=== PATIENT | female | born 1995 | race Caucasian/White ===

== ENCOUNTER → 2019-07-16 | Outpatient (CLI) | payer BC ==
--- NOTE | 2019-07-16 13:38 | Diagnostic Imaging Report ---
INDICATION: survey. TECHNIQUE: Multiple real-time grayscale images were obtained over the gravid uterus. COMPARISON: There are no prior studies available for comparison. FINDINGS: There is a single live fetus in breech presentation. heart motion was noted, and a rate of 150 BPM was recorded. This study was technically difficult due to the patient's body habitus. There were no abnormalities identified. However, the four-chamber heart view and the three-vessel cord were not well visualized. The intracranial contents were poorly imaged as well. The growth parameters are fairly uniform. The placenta is anterior, and there is no previa. The amniotic fluid volume is within normal limits. The cervix was identified and measures 4.3 cm in length. IMPRESSION: 1. There is a single live fetus of approximately 20 weeks 6 days gestation, +/- 1.5 weeks. The EDC is November 27, 2019. 2. There were no abnormalities identified. However, the four-chamber heart view, the three-vessel cord, and the intracranial contents were not well visualized. A short-term (4-6 week) follow-up exam would be recommended for further evaluation. 3. The growth parameters are fairly uniform. Biometrical measurements are as follows: Biparietal 4.91 cm, age 20 weeks 6 days. Head circumference 18.46 cm, age 20 weeks 6 days. Abdominal circumference 15.23 cm, age 20 weeks 4 days. Femur length 3.45 cm, age 21 weeks 0 days. Sonographic estimate age: 20 weeks 6 days. Sonographic estimated date of delivery: 11/27/2019. Estimated Weight: 369 gm (+/- 54 gm). LMP percentile: 50%. heart rate: 150 beats per minute. number: 1 of 1. Dictated by: Dictated on workstation # [id number]
== END ==
LOC: RAD 10:37
PROVIDERS: ATTEND Nurse Practitioner Women's Health
DX: Z36.89 Encounter for other specified antenatal screening (principal); Z3A.20 20 weeks gestation of pregnancy
CPT/HCPCS: 76805

== ENCOUNTER → 2019-09-17 | Outpatient (CLI) | payer BC ==
--- NOTE | 2019-09-17 11:46 | Diagnostic Imaging Report ---
TECHNIQUE: Multiple real-time grayscale images were obtained over the gravid uterus. INDICATION: For completion of prior limited anatomical survey. This is compared with a study performed 07/16/2019 that exam showing pizarro gestation. EDC 11/27/2019. Limited evaluation of the 4 chambered heart, the cord and the intracranial contents. Cardiac structures of the pizarro gestation appeared unremarkable. A three-vessel cord appeared normal and normally inserted. The visualized intracranial structures unremarkable. The posterior fossa and cisterna magna could not be clearly delineated on a positional basis. The placenta is anterior with no abruption or previa. Amniotic fluid index 14.7 was normal. heart rate regular at 139 bpm. IMPRESSION: Limited visualization of the posterior fossa on a positional basis remaining intracranial structures and previously inadequately visualized anatomical structures appeared normal. No pathological finding identified. Biometrical measurements are as follows: Biparietal cm, age weeks days. Head circumference cm, age weeks days. Abdominal circumference cm, age weeks days. Femur length cm, age weeks days. Sonographic estimate age: weeks days. Sonographic estimated date of delivery: . Estimated Weight: gm (+/- gm). LMP percentile: %. heart rate: beats per minute. number: of . Dictated by: Dictated on workstation # [id number]
== END ==
LOC: RAD 10:00
PROVIDERS: ATTEND Obstetrics & Gynecology
DX: Z36.9 Encounter for antenatal screening, unspecified (principal); Z3A.28 28 weeks gestation of pregnancy
CPT/HCPCS: 76816

== ENCOUNTER → 2019-09-30 | Outpatient (CLI) | payer BC ==
--- NOTE | 2019-09-30 14:47 | Diagnostic Imaging Report ---
INDICATION: Gestational diabetes. TECHNIQUE: Multiple real-time grayscale images were obtained over the gravid uterus. COMPARISON: 09/17/2019. FINDINGS: There is a single live fetus in a cephalic presentation. heart rate was recorded at 144 BPM. Placenta is anterior. Amniotic fluid volume is 16.6 cm. Biophysical profile was performed. Biophysical profile score is normal at 8 out of 8. Biometrical measurements are as follows: Biparietal 8.15 cm, age 32 weeks 6 days. Head circumference 29.55 cm, age 32 weeks 5 days. Abdominal circumference 28.12 cm, age 32 weeks 2 days. Femur length 6.09 cm, age 31 weeks 5 days. Sonographic estimate age: 32 weeks 3 days. Sonographic estimated date of delivery: 11/22/2019. Estimated Weight: 1903 gm (+/- 278 gm). LMP percentile: 61%. heart rate: 147 beats per minute. number: 1 of 1. IMPRESSION: Single live IUP 32 to 33 weeks gestational age. Biophysical profile score is normal at 8 out of 8. Dictated by: Dictated on workstation # [id number]
== END ==
LOC: RAD 10:23
PROVIDERS: ATTEND Obstetrics & Gynecology
DX: O24.419 Gestational diabetes mellitus in pregnancy, unspecified control (principal); Z3A.33 33 weeks gestation of pregnancy
CPT/HCPCS: 76805; 76819

== ENCOUNTER → 2019-10-28 | Outpatient (CLI) | payer BC ==
--- NOTE | 2019-10-28 14:45 | Diagnostic Imaging Report ---
INDICATION: Gestational diabetes. TECHNIQUE: Multiple real-time grayscale images were obtained over the gravid uterus. COMPARISON: 09/30/2019. FINDINGS: There is a single live intrauterine gestation in cephalic presentation. The visible cervix measures 3 cm in length, however is not well seen due to shadowing from the head. The placenta is anterior and there is no evidence of previa. The heart rate measures 150 BPM. Biometric measurements are given below. The nose and lips are seen. The amniotic fluid index measures 11.7 cm. The biophysical profile score is 8/8, which is normal. The maternal adnexa are not seen due to gravid uterus. Biometrical measurements are as follows: Biparietal 8.90 cm, age 36 weeks 1 days. Head circumference 31.21 cm, age 35 weeks 0 days. Abdominal circumference 31.81 cm, age 35 weeks 6 days. Femur length 6.69 cm, age 34 weeks 3 days. Sonographic estimate age: 35 weeks 3 days. Sonographic estimated date of delivery: 11/29/2019. Estimated Weight: 2651 gm (+/- 387 gm). LMP percentile: 46%. heart rate: 150 beats per minute. number: 1 of 1. IMPRESSION: 1. Single live intrauterine gestation measuring at 35 weeks and 3 days which is concordant with the clinical dates. heart rate and amniotic fluid are normal. 2. Biophysical profile score is 8/8, which is normal. Dictated by: Dictated on workstation # [id number]
== END ==
LOC: RAD 10:49
PROVIDERS: ATTEND Obstetrics & Gynecology
DX: O24.415 Gestational diabetes mellitus in pregnancy, controlled by oral hypoglycemic drugs (principal); Z3A.35 35 weeks gestation of pregnancy
CPT/HCPCS: 76805; 76819

== ENCOUNTER 2019-11-18 08:51 | Inpatient (IN) | payer BC ==
[2019-11-18] VITALS (14 sets, daily range): BP systolic 102–148; BP diastolic 59–91
[~2019-11-18] VITALS: Ht 160 cm; Wt 113.2 kg
--- NOTE | 2019-11-18 09:00 | NUR ---
CRIS MULLEN presented to unit via ambulation from ED, accompanied by s/o, with c/o WATER BROKE. CRIS MULLEN weighed, gowned, voided, and to bed. EFHM and TOCO applied, VS taken. CRIS MULLEN oriented to bed controls, call light, TV, heat, and A/C controls.
[2019-11-18] MEDS ORDERED: OMEP20CA18 PO (09:48)
[2019-11-18] MEDS ORDERED: PREN-142 PO (09:48)
[2019-11-18] MEDS ORDERED: FERR-84 PO (09:50)
[2019-11-18] MEDS ORDERED: ASCO500T17 PO (09:50)
[2019-11-18] MEDS ORDERED: METF-399 PO (09:50)
[2019-11-18 09:52] LABS: BILIRUBIN,URINE NEGATIVE (NEGATIVE); CLARITY,URINE CLEAR; COLOR,URINE YELLOW; GLUCOSE, URINE (UA) NEGATIVE (NEGATIVE); KETONES,URINE NEGATIVE (NEGATIVE); LEUKOCYTE ESTERASE ,URINE NEGATIVE (NEGATIVE); NITRITE,URINE NEGATIVE (NEGATIVE); PROTEIN,URINE NEGATIVE (NEGATIVE)
[2019-11-18 10:02] LABS: BACTERIA,URINE TRACE /HPF
[2019-11-18] MEDS ORDERED: LACTATED RINGERS 1,000 ML IV ONE (12:19)
[2019-11-18] MEDS: LACTATED RINGERS 1,000 ML IV SCH ×2 (12:35→21:12)
[2019-11-18] MEDS ORDERED: MINERAL OIL CONCENTRATE 99.9% 15 ML UDC TOP PRN (13:00)
[2019-11-18 13:02] LABS: BASOPHILS % (AUTO) 0 % (0-10); EOSINOPHILS # (AUTO) 0.1 10^3/uL (0.0-0.3); EOSINOPHILS % (AUTO) 1 % (0-10); HEMATOCRIT 37 % (35-52); HEMOGLOBIN 12.2 G/DL (11.5-16.0); LYMPHOCYTES # (AUTO) 1.4 X 10^3 (1.0-4.0); LYMPHOCYTES % (AUTO) 18 % (12-44); MEAN CORPUSCULAR HEMOGLOBIN 30 PG (25-34); MEAN CORPUSCULAR HGB CONC 33 G/DL (32-36); MEAN CORPUSCULAR VOLUME 90 FL (80-99); MEAN PLATELET VOLUME 11.9 FL (7.4-10.4); MONOCYTES # (AUTO) 0.4 X 10^3 (0.0-1.0); MONOCYTES % (AUTO) 5 % (0-12); NEUTROPHILS % (AUTO) 76 % (42-75); PLATELET COUNT 119 10^3/uL (130-400); RED CELL DISTRIBUTION WIDTH 15.9 % (10.0-14.5); WHITE BLOOD COUNT 7.8 10^3/uL (4.3-11.0)
[2019-11-18] MEDS ORDERED: CATHETER FLUSH 10 ML SYR IV SCH (14:00)
--- OUTSIDE RECORDS SUMMARY | 2019-11-18 14:00 | XMS REPORT | Continuity of Care Document ---
Author Organization Unknown Address Unknown Phone Unavailable Allergies There is no data. Medications There is no data. Problems Date Dx Coded Attending Type Code Diagnosis Diagnosed By 07/19/2019 BEAU LY UTILITY SPECIALIST Ot Z36.89 ENCOUNTER FOR OTHER SPECIFIED 07/19/2019 BEAU LY UTILITY SPECIALIST Ot Z3A.20 20 WEEKS GESTATION OF 08/09/2019 BEAU LY UTILITY SPECIALIST Ot Z36.89 ENCOUNTER FOR OTHER SPECIFIED 08/09/2019 BEAU LY UTILITY SPECIALIST Ot Z3A.20 20 WEEKS GESTATION OF 09/20/2019 MALIK DO, ANN-MARIE C Ot Z36.9 ENCOUNTER FOR SCREENING, UNSPE 09/20/2019 MALIK DO, ANN-MARIE C Ot Z3A.2 8 28 WEEKS GESTATION OF 09/30/2019 MALIK DO, ANN-MARIE C Ot Z36.9 ENCOUNTER FOR SCREENING, UNSPE 09/30/2019 MALIK DO, ANN-MARIE C Ot Z3A.2 8 28 WEEKS GESTATION OF 10/01/2019 MALIK DO, ANN-MARIE C Ot O24.4 19 GESTATIONAL DIABETES MELLITUS IN PREGNAN 10/01/2019 MALIK DO, ANN-MARIE C Ot Z3A.3 3 33 WEEKS GESTATION OF 10/14/2019 MALIK DO, ANN-MARIE C Ot O24.4 19 GESTATIONAL DIABETES MELLITUS IN PREGNAN 10/14/2019 MALIK DO, ANN-MARIE C Ot Z3A.3 3 33 WEEKS GESTATION OF 10/29/2019 MALIK DO, ANN-MARIE C Ot O24.4 15 GESTATNL DIABETES IN PREG, CTRL BY ORAL 10/29/2019 MALIK DO, ANN-MARIE C Ot Z3A.3 5 35 WEEKS GESTATION OF 11/11/2019 MALIK DO, ANN-MARIE C Ot O24.4 15 GESTATNL DIABETES IN PREG, CTRL BY ORAL 11/11/2019 MALIK DO, ANN-MARIE C Ot Z3A.3 5 35 WEEKS GESTATION OF Procedures There is no data. Results Test Result Range Complete urinalysis with reflex to cultu re - 11/18/19 09:10 Urine color determination YELLOW NRG Urine clarity determination CLEAR NR G Urine pH measurement by test strip 7.0 5-9 Specific gravity of urine by test strip 1.015 1.016-1.022 Urine protein assay by test strip, semi-quantitative NEGATIVE NEGATIVE Urine glucose detection by automated test strip NE GATIVE NEGATIVE Erythrocytes detection in urine sediment by light micr oscopy NEGATIVE NEGATIVE Urine ketones detection by automated test strip NE GATIVE NEGATIVE Urine nitrite detection by test strip NEGATIVE NEGATIVE Urine total bilirubin detection by test strip NEGA TIVE NEGATIVE Urine urobilinogen measurement by automated test strip (mass/volume) 0.2 mg/dL < = 1.0 Urine leukocyte esterase detection by dipstick NEG ATIVE NEGATIVE Automated urine sediment erythrocyte cou nt by microscopy (number/high power field) NONE NRG Automated urine sediment leukocyte count by microscopy (number/high power field) [HPF] NRG Bacteria detection in urine sediment by light microsco py TRACE NRG Squamous epithelial cells detection in u rine sediment by light microscopy 10-25 NRG Crystals detection in urine sediment by light microsco py NONE NRG Casts detection in urine sediment by light microscopy NONE NRG Mucus detection in urine sediment by light microscopy NEGATIVE NRG Complete urinalysis with reflex to culture CULTURE PENDING NRG Capillary blood glucose measurement by g lucometer (mass/volume) - 11/18/19 10:16 Capillary blood glucose measurement by glucometer (mas s/volume) 92 mg/dL 70-110 Complete blood count (CBC) with automate d white blood cell (WBC) differential - 11/18/19 12:35 Blood leukocytes automated count (number/volume) 7.8 10*3/uL 4.3-11.0 Blood erythrocytes automated count (number/volume) 4.08 10*6/uL 4.35-5.85 Venous blood hemoglobin measurement (mass/volume) 12.2 g/dL 11.5-16.0 Blood hematocrit (volume fraction) 37 % 35-52 Automated erythrocyte mean corpuscular volume 90 [ foz_us] 80-99 Automated erythrocyte mean corpuscular h emoglobin (mass per erythrocyte) 30 pg 25-34 Automated erythrocyte mean corpuscular h emoglobin concentration measurement (mass/volume) 33 g/dL 32-36 Automated erythrocyte distribution width ratio 15. 9 % 10.0- 14.5 Automated blood platelet count (count/volume) 119 10*3/uL 130-400 Automated blood platelet mean volume measurement 11.9 [foz_us] 7.4-10.4 Automated blood neutrophils/100 leukocytes 76 % 42-75 Automated blood lymphocytes/100 leukocytes 18 % 12-44 Blood monocytes/100 leukocytes 5 % 0-12 Automated blood eosinophils/100 leukocytes 1 % 0-10 Automated blood basophils/100 leukocytes 0 % 0-10 Blood neutrophils automated count (number/volume) 6.0 10*3 1.8-7.8 Blood lymphocytes automated count (number/volume) 1.4 10*3 1.0-4.0 Blood monocytes automated count (number/volume) 0. 4 10*3 0.0-1.0 Automated eosinophil count 0.1 10*3/uL 0 .0-0.3 Automated blood basophil count (count/volume) 0.0 10*3/uL 0.0-0.1 Blood type T Indirect antibody screen [facility] - 11/18/19 12:35 WRISTBAND NUMBER [id number] NRG ABO+Rh group OP NRG Blood group antibody screen NEGATIVE NR G Encounters ACCT No. Visit Date/Time Discharge Status Pt. Type Provider Facility Loc./Unit Complaint [id number] 10/28/2019 10:49:00 23:59:59 CLS Outpatient ANN-MARIE MALIK DO [facility] RAD GDM [id number] 09/30/2019 10:23:00 020 23:59:59 CLS Outpatient ANN-MARIE MALIK DO [facility] RAD GESTATIONAL DIABETES,MS EGNANT [id number] 09/17/2019 10:00:00 020 23:59:59 CLS Outpatient ANN-MARIE MALIK DO [facility] RAD EVALUATE ANATOMY NOT SE EN ON PRIOR [id number] 07/16/2019 10:37:00 23:59:59 CLS Outpatient BEAU LY APRN [facility] RAD [id number] 11/18/2019 10:03:00 Document Registration
--- OUTSIDE RECORDS SUMMARY | 2019-11-18 14:00 | XMS REPORT | CCD ---
Author Monica Muñoz Organization Anna Perez MD, [facility] Address [address] [place] [address] Phone Care Team Providers Care Fruit Culler Name Role Phone PP Unavailable CCM Unavailable Summary Purpose Interface Exchange Insurance Providers Payer name Policy type / Coverage type Covered democrat ID Effective Begin Date Effective End Date [facility] [id number] 2014 Unknown Family history Mother Diagnosis Age At Onset Hypertension Unknown Cancer Unknown Hyperlipidemia Unknown Brother Diagnosis Age At Onset Depression Unknown Father Diagnosis Age At Onset Depression Unknown Hyperlipidemia Unknown Social History Social History Element Codes Description Effective Dates Marital status Unknown S fran 05/27/2014 Employment Unknown Stude nt works at [employer] and [facility] [employer] 05/27/[address]: 143895797225979 Current some days smoker when she drinks 05/27/[address]: 285112 Currently drinks alcohol 1 per week 05/27/2014 Allergies, Adverse Reactions, Alerts Substance Reaction Codes Entered Date Inactivated Date Status * NO KNOWN FOOD RODRIGUEZ RGIES Unknown 05/27/2014 No Inactive Date Active * NO KNOWN DRUG RODRIGUEZ RGIES Unknown 05/27/2014 No Inactive Date Active Past Medical History Illness Codes Condition Status Onset Date Resolved Date 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 Active 11/29/2015 Unknown Tobacco use ICD-9: 305.1 ICD-10: Z72.0 Active 11/29/2015 Unknown Encounter for gyneco logical examination (general) (routine) without abnormal findings ICD-9: V72.31 ICD-10: Z01.419 Active 06/19/2015 Unknown Abnormal Pap smear o f cervix ICD-9: 795.00 Active 10/2014 Unknown Pap smear of vagina with ASC-US ICD-9: 795.11 Active 10/2014 Unknown Vaginal itching ICD-9: 698.1 Active 08/16/2014 Unknown Well woman exam with routine gynecological exam ICD-9: V72.31 Active 05/27/2014 Unknown Problems Condition Codes Effectiv e Dates Condition Status 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 11/29/2015 Active Tobacco use ICD-9: 305.1 ICD-10: Z72.0 11/29/2015 Active Encounter for gyneco logical examination (general) (routine) without abnormal findings ICD-9: V72.31 ICD-10: Z01.419 06/19/2015 Active Abnormal Pap smear o f cervix ICD-9: 795.00 12/29/2014 Active Pap smear of vagina with ASC-US ICD-9: 795.11 12/29/2014 Active Vaginal itching ICD-9: 698.1 08/16/2014 Active Well woman exam with routine gynecological exam ICD-9: V72.31 05/27/2014 Active Medications Medication Codes Instruc tions Start Date Stop Date Sta tus Fill Instructions Cryselle (28) 0.3 mg -30 mcg tablet RxNorm: 655958 TAKE ONE TABLET BY [facility] ONCE DAILY 06/03/2016 05/04/2017 Inactive EpiPen 2-Anson 0.3 mg/ 0.3 mL injection, auto-injector RxNorm: 056927 0.3 Milliliter(s) IM PRN 11/30/2015 No Stop Date Active prednisone 10 mg tab lets in a dose pack RxNorm: 276538 1 Tablet(s) PO UD 11/30/2015 12/11/2015 In active Cryselle (28) 0.3 mg -30 mcg tablet RxNorm: 836690 1 Tablet(s) PO daily 06/20/2015 05/20/2016 In active Diflucan 150 mg tablet RxNorm: 300713 1 Tablet(s) PO daily 08/16/2014 08/18/2014 Inactive Cryselle (28) oral RxNorm: 330750 oral No Start Date 06/19/2015 Inactive Medication Administered No Medication Administered data Immunizations Vaccine Codes Date Status PPD Unknown 06/20/2015 completed Influenza CVX: 141 04/27 completed Tetanus, Diptheria, Pertussis CVX: 07/28/2009 completed Tetanus/Diptheria CVX: 07/28/2009 completed Hepatitis B CVX: 08 07/0 07/1995 completed Assessments Condition Codes Effectiv e Dates Allergic urticaria ICD-10: L50.0 ICD-9: 708.0 11/30/2015 Tobacco use ICD-10: Z72.0 ICD-9: 305.1 11/30/2015 Encounter for gynecological examination (general) (routine) without abnormal findings ICD-10: Z01.419 ICD-9: V72.31 06/20/2015 Abnormal Pap smear of cervix ICD-9: 795.00 12/30/2014 Pap smear of vagina with ASC-US ICD- 9: 795.11 12/30/2014 Vaginal itching ICD-9: 698.1 08/16/2014 Well woman exam with routine gynecological exam ICD-9: V72.31 05/27/2014 Reason For Visit Reason For Visit Effective Dates Notes rash 11/30/2015 Pap smear abnormality 06/20/2015 Pap smear abnormality 12/30/2014 ~generic 08/16/2014 foll owup itching and burning in vaginal area well woman exam (18-39 years) 05/27/2014 Results Observation Observation Code Item Item Code Result Date Quantitative Bhcg Yhg431 Quant bHCG 11065.0 mIU/ml 019 GC/CHL PRB 7101765 CHLM PROBE NEG 05/28/2014 GC/CHL PRB 0338204 GC MA OBE NEG 05/28/2014 Review of Systems System Result Effective Dates Constitutional No recent illness 11/30/2015 Constitutional No anorexia 11/30/2015 Constitutional No night sweats 11/30/2015 Constitutional No fatigue 11/30/2015 Constitutional No diaphoresis 11/30/2015 Constitutional No chills 11/30/2015 Constitutional No fever 11/30/2015 Constitutional No insomnia 11/30/2015 Constitutional No malaise 11/30/2015 Constitutional No weight loss 11/30/2015 Constitutional No weight gain 11/30/2015 Eyes No eye erythema 11/2015 Eyes No eye discharge Ears/Nose/Throat/Neck No headache 11/30/2015 Ears/Nose/Throat/Neck No nasal discharge 11/30/2015 Ears/Nose/Throat/Neck No nasal allergies 11/30/2015 Ears/Nose/Throat/Neck No otalgia 11/30/2015 Ears/Nose/Throat/Neck No sinus congestion 11/30/2015 Cardiovascular No chest pain/pressure 11/30/2015 Cardiovascular No dyspnea 11/30/2015 Cardiovascular No edema 11/30/2015 Respiratory No productive sputum 11/30/2015 Respiratory No cough 11/2015 Respiratory No chest congestion 11/30/2015 Gastrointestinal No abdominal pain 11/30/2015 Gastrointestinal No diarrhea 11/30/2015 Gastrointestinal No constipation 11/30/2015 Genitourinary/Nephrology No dysuria 11/30/2015 Musculoskeletal No joint complaint 11/30/2015 Dermatologic rash 2015 Neurologic No alteration of consciousness 11/30/2015 Psychiatric No depression 11/30/2015 Psychiatric No anxiety 0 11/30/2015 Endocrine No dry or coarse skin 11/30/2015 Hematologic/Lymphatic No abnormal ec chymoses 11/30/2015 Constitutional No recent illness 12/30/2014 Constitutional No anorexia 12/30/2014 Constitutional No night sweats 12/30/2014 Constitutional No chills 12/30/2014 Constitutional No diaphoresis 12/30/2014 Constitutional No fatigue 12/30/2014 Constitutional No fever 12/30/2014 Constitutional No insomnia 12/30/2014 Constitutional No malaise 12/30/2014 Constitutional No weight loss 12/30/2014 Constitutional No weight gain 12/30/2014 Ears/Nose/Throat/Neck No dizziness 12/30/2014 Ears/Nose/Throat/Neck headache 12/30/2014 Cardiovascular No chest pain/pressure 12/30/2014 Cardiovascular No dyspnea 12/30/2014 Respiratory No cough 11/2014 Gastrointestinal No abdominal pain 12/30/2014 Gastrointestinal No constipation 12/30/2014 Gastrointestinal No diarrhea 12/30/2014 Gastrointestinal No vomiting 12/30/2014 Gastrointestinal No nausea 12/30/2014 Genitourinary/Nephrology No dysuria 12/30/2014 Genitourinary/Nephrology No flank pain 12/30/2014 Genitourinary/Nephrology No genital lesion 12/30/2014 Genitourinary/Nephrology No pelvic pain 12/30/2014 Genitourinary/Nephrology Pap smear a bnormality 12/30/2014 Dermatologic No rash 11/2014 Dermatologic No sores Gastrointestinal No abdominal pain 08/16/2014 Gastrointestinal No constipation 08/16/2014 Gastrointestinal No diarrhea 08/16/2014 Gastrointestinal No vomiting 08/16/2014 Gastrointestinal No nausea 08/16/2014 Genitourinary/Nephrology No dysuria 08/16/2014 Genitourinary/Nephrology No urinary urgenc y 08/16/2014 Genitourinary/Nephrology No urinary frequency 08/16/2014 Genitourinary/Nephrology No vaginal discharge 08/16/2014 Constitutional No recent illness 08/16/2014 Constitutional No anorexia 08/16/2014 Constitutional No night sweats 08/16/2014 Constitutional No chills 08/16/2014 Constitutional No diaphoresis 08/16/2014 Constitutional No fatigue 08/16/2014 Constitutional No fever 08/16/2014 Constitutional No insomnia 08/16/2014 Constitutional No malaise 08/16/2014 Constitutional No weight loss 08/16/2014 Constitutional No weight gain 08/16/2014 Eyes No eye discharge Eyes No eye erythema Cardiovascular No chest pain/pressure 08/16/2014 Respiratory No cough Musculoskeletal No joint complaint 08/16/2014 Dermatologic No rash Dermatologic No sores Constitutional No recent illness 05/27/2014 Constitutional No anorexia 05/27/2014 Constitutional No night sweats 05/27/2014 Constitutional No chills 05/27/2014 Constitutional No diaphoresis 05/27/2014 Constitutional No fatigue 05/27/2014 Constitutional No insomnia 05/27/2014 Constitutional No fever 05/27/2014 Constitutional No malaise 05/27/2014 Constitutional No weight loss 05/27/2014 Constitutional No weight gain 05/27/2014 Eyes No eye discharge Eyes No eye erythema Ears/Nose/Throat/Neck No dizziness 05/27/2014 Ears/Nose/Throat/Neck No nasal discharge 05/27/2014 Ears/Nose/Throat/Neck No otalgia 05/27/2014 Ears/Nose/Throat/Neck No sinus congestion 05/27/2014 Ears/Nose/Throat/Neck No sore throat 05/27/2014 Cardiovascular No chest pain/pressure 05/27/2014 Cardiovascular No dyspnea 05/27/2014 Cardiovascular No edema 05/27/2014 Respiratory No cough Respiratory No dyspnea 1 Gastrointestinal No constipation 05/27/2014 Gastrointestinal No diarrhea 05/27/2014 Gastrointestinal No vomiting 05/27/2014 Gastrointestinal No nausea 05/27/2014 Genitourinary/Nephrology No dysuria 05/27/2014 Musculoskeletal No joint complaint 05/27/2014 Dermatologic No rash Dermatologic No sores Neurologic No alteration of consciousness 05/27/2014 Endocrine No polydipsia 05/27/2014 Endocrine No polyuria Hematologic/Lymphatic No abnormal bl eeding and bruising 05/27/2014 Psychiatric No anxiety 1 Psychiatric No depression 05/27/2014 Physical Exam Exam Name System Name It em Name Status Result Effective Dates Notes Full Exam - General 1994 Constitutional general appearance Overall: well developed 11/30/2015 None Full Exam - General 1994 Constitutional general appearance Overall: in no acute distress 11/30/2015 None Full Exam - General 1994 Constitutional general appearance Overall: well nourished 11/30/2015 None Full Exam - General 1994 Psychiatric orientation/consciousness Overall: oriented to person, place and time 11/30/2015 None Full Exam - General 1994 Neurologic deep tendon reflexes Overall: deep tendon reflexes intact 11/30/2015 None Full Exam - General 1994 Neurologic cranial nerves Overall: crainial nerves 2 - 12 grossly intact 11/30/2015 None Full Exam - General 1994 Integument inspection of skin Location: right arm 11/30/2015 None Full Exam - General 1994 Integument inspection of skin Location: left arm 11/30/2015 None Full Exam - General 1994 Integument inspection of skin Rash/Lesions: wheal 11/30/2015 None Full Exam - General 1994 Musculoskeletal gait and station Overall: normal station 11/30/2015 None Full Exam - General 1994 Musculoskeletal gait and station Overall: normal gait 11/30/2015 None Full Exam - General 1994 Cardiovascular auscultation of heart Overall: regular rate 11/30/2015 None Full Exam - General 1994 Cardiovascular auscultation of heart Overall: normal heart sounds 11/30/2015 None Full Exam - General 1994 Cardiovascular auscultation of heart Overall: no murmurs 11/30/2015 None Full Exam - General 1994 Respiratory auscultation Overall: breath sounds clear bilaterally 11/30/2015 None Full Exam - General 1994 Respiratory respiratory effort/rhythm Overall: normal rate 11/30/2015 None Full Exam - General 1994 Respiratory respiratory effort/rhythm Overall: no retractions 11/30/2015 None Full Exam - General 1994 Ears/Nose/Throat otoscopic exam Overall: tympanic membranes clear 11/30/2015 None Full Exam - General 1994 Ears/Nose/Throat otoscopic exam Overall: external auditory canals clear 11/30/2015 None Full Exam - General 1994 Ears/Nose/Throat oral cavity/pharynx/larynx Overall: oropharyngeal mucosa clear 11/30/2015 None Full Exam - General 1994 Ears/Nose/Throat oral cavity/pharynx/larynx Overall: no masses 11/30/2015 None Full Exam - General 1994 Ears/Nose/Throat oral cavity/pharynx/larynx Overall: oral mucosa clear 11/30/2015 None Full Exam - General 1994 Constitutional general appearance Overall: well developed 12/30/2014 None Full Exam - General 1994 Constitutional general appearance Overall: in no acute distress 12/30/2014 None Full Exam - General 1994 Constitutional general appearance Overall: well nourished 12/30/2014 None Full Exam - General 1994 Eyes conjunctiva/eyelids Overall: conjunctiva clear 12/30/2014 None Full Exam - General 1994 Eyes pupils and irises Overall: pupils equal, round, reactive to light and accomodation 12/30/2014 None Full Exam - General 1994 Ears/Nose/Throat otoscopic exam Overall: external auditory canals clear 12/30/2014 None Full Exam - General 1994 Ears/Nose/Throat otoscopic exam Overall: tympanic membranes clear 12/30/2014 None Full Exam - General 1994 Ears/Nose/Throat oral cavity/pharynx/larynx Overall: oral mucosa clear 12/30/2014 None Full Exam - General 1994 Respiratory auscultation Overall: breath sounds clear bilaterally 12/30/2014 None Full Exam - General 1994 Respiratory respiratory effort/rhythm Overall: no retractions 12/30/2014 None Full Exam - General 1994 Respiratory respiratory effort/rhythm Overall: normal rate 12/30/2014 None Full Exam - General 1994 Cardiovascular extremities Overall: no clubbing 12/30/2014 None Full Exam - General 1994 Cardiovascular auscultation of heart Overall: regular rate 12/30/2014 None Full Exam - General 1994 Cardiovascular auscultation of heart Overall: normal heart sounds 12/30/2014 None Full Exam - General 1994 Cardiovascular auscultation of heart Overall: no murmurs 12/30/2014 None Full Exam - General 1994 Abdomen abdominal exam Overall: no tenderness 12/30/2014 None Full Exam - General 1994 Abdomen abdominal exam Overall: normal bowel sounds 12/30/2014 None Full Exam - General 1994 Genitourinary cervix Cervical discharge: white 12/30/2014 None Full Exam - General 1994 Genitourinary labia and vagina Overall: normal hair distribution 12/30/2014 None Full Exam - General 1994 Genitourinary labia and vagina Overall: no lesions 12/30/2014 None Full Exam - General 1994 Genitourinary adnexa/parametria Overall: no tenderness 12/30/2014 None Full Exam - General 1994 Genitourinary urethra Overall: no masses 12/30/2014 None Full Exam - General 1994 Genitourinary bladder Overall: no tenderness 12/30/2014 None Full Exam - General 1994 Lymphatic neck nodes Overall: anterior cervical chain benign 12/30/2014 None Full Exam - General 1994 Lymphatic neck nodes Overall: posterior cervical chain benign 12/30/2014 None Full Exam - General 1994 Musculoskeletal gait and station Overall: normal gait 12/30/2014 None Full Exam - General 1994 Musculoskeletal gait and station Overall: normal station 12/30/2014 None Full Exam - General 1994 Musculoskeletal head and neck Overall: head atraumatic 12/30/2014 None Full Exam - General 1994 Integument inspection of skin Overall: no rash, lesions 12/30/2014 None Full Exam - General 1994 Psychiatric orientation/consciousness Overall: oriented to person, place and time 12/30/2014 None Full Exam - General 1994 Genitourinary uterus Overall: normal size 12/30/2014 None Full Exam - General 1994 Genitourinary cervix Cervical discharge: scant 12/30/2014 None Full Exam - General 1994 Constitutional general appearance Overall: well developed 08/16/2014 None Full Exam - General 1994 Constitutional general appearance Overall: in no acute distress 08/16/2014 None Full Exam - General 1994 Constitutional general appearance Overall: well nourished 08/16/2014 None Full Exam - General 1994 Psychiatric orientation/consciousness Overall: oriented to person, place and time 08/16/2014 None Full Exam - General 1994 Abdomen abdominal exam Overall: no tenderness 08/16/2014 None Full Exam - General 1994 Abdomen abdominal exam Overall: normal bowel sounds 08/16/2014 None Full Exam - General 1994 Cardiovascular auscultation of heart Overall: regular rate 08/16/2014 None Full Exam - General 1994 Cardiovascular auscultation of heart Overall: normal heart sounds 08/16/2014 None Full Exam - General 1994 Respiratory auscultation Overall: breath sounds clear bilaterally 08/16/2014 None Full Exam - General 1994 Respiratory respiratory effort/rhythm Overall: normal rate 08/16/2014 None Full Exam - General 1994 Respiratory respiratory effort/rhythm Overall: no retractions 08/16/2014 None Full Exam - General 1994 Constitutional general appearance Overall: well developed 05/27/2014 None Full Exam - General 1994 Constitutional general appearance Overall: in no acute distress 05/27/2014 None Full Exam - General 1994 Constitutional general appearance Overall: well nourished 05/27/2014 None Full Exam - General 1994 Psychiatric orientation/consciousness Overall: oriented to person, place and time 05/27/2014 None Full Exam - General 1994 Neurologic deep tendon reflexes Overall: deep tendon reflexes intact 05/27/2014 None Full Exam - General 1994 Neurologic cranial nerves Overall: crainial nerves 2 - 12 grossly intact 05/27/2014 None Full Exam - General 1994 Integument inspection of skin Overall: no rash, lesions 05/27/2014 None Full Exam - General 1994 Musculoskeletal digits and nails Overall: no clubbing 05/27/2014 None Full Exam - General 1994 Musculoskeletal digits and nails Overall: digits benign 05/27/2014 None Full Exam - General 1994 Musculoskeletal gait and station Overall: normal gait 05/27/2014 None Full Exam - General 1994 Musculoskeletal gait and station Overall: normal station 05/27/2014 None Full Exam - General 1994 Musculoskeletal head and neck Overall: head atraumatic 05/27/2014 None Full Exam - General 1994 Lymphatic neck nodes Overall: anterior cervical chain benign 05/27/2014 None Full Exam - General 1994 Lymphatic neck nodes Overall: posterior cervical chain benign 05/27/2014 None Full Exam - General 1994 Genitourinary bladder Overall: no tenderness 05/27/2014 None Full Exam - General 1994 Genitourinary urethra Overall: no masses 05/27/2014 None Full Exam - General 1994 Genitourinary adnexa/parametria Overall: no tenderness 05/27/2014 None Full Exam - General 1994 Genitourinary labia and vagina Overall: normal hair distribution 05/27/2014 None Full Exam - General 1994 Genitourinary labia and vagina Overall: no lesions 05/27/2014 None Full Exam - General 1994 Genitourinary cervix Overall: surgically absent 05/27/2014 None Full Exam - General 1994 Genitourinary cervix Cervical discharge: white 05/27/2014 None Full Exam - General 1994 Abdomen abdominal exam Overall: no tenderness 05/27/2014 None Full Exam - General 1994 Abdomen abdominal exam Overall: normal bowel sounds 05/27/2014 None Full Exam - General 1994 Chest/Breast breast and axillae palpation Overall: breasts non- tender 05/27/2014 None Full Exam - General 1994 Chest/Breast breast and axillae palpation Overall: axillae non- tender 05/27/2014 None Full Exam - General 1994 Chest/Breast breast and axillae palpation Overall: no nipple discharge 05/27/2014 None Full Exam - General 1994 Chest/Breast breast/chest inspection Overall: breasts to symmetric and without lesions 05/27/2014 None Full Exam - General 1994 Chest/Breast breast/chest inspection Overall: normal chest shape 05/27/2014 None Full Exam - General 1994 Cardiovascular auscultation of heart Overall: regular rate 05/27/2014 None Full Exam - General 1994 Cardiovascular auscultation of heart Overall: normal heart sounds 05/27/2014 None Full Exam - General 1994 Cardiovascular auscultation of heart Overall: no murmurs 05/27/2014 None Full Exam - General 1994 Cardiovascular extremities Overall: no clubbing 05/27/2014 None Full Exam - General 1994 Respiratory auscultation Overall: breath sounds clear bilaterally 05/27/2014 None Full Exam - General 1994 Respiratory respiratory effort/rhythm Overall: normal rate 05/27/2014 None Full Exam - General 1994 Respiratory respiratory effort/rhythm Overall: no retractions 05/27/2014 None Full Exam - General 1994 Ears/Nose/Throat otoscopic exam Overall: external auditory canals clear 05/27/2014 None Full Exam - General 1994 Ears/Nose/Throat otoscopic exam Overall: tympanic membranes clear 05/27/2014 None Full Exam - General 1994 Ears/Nose/Throat oral cavity/pharynx/larynx Overall: oral mucosa clear 05/27/2014 None Full Exam - General 1994 Eyes conjunctiva/eyelids Overall: conjunctiva clear 05/27/2014 None Full Exam - General 1994 Eyes pupils and irises Overall: pupils equal, round, reactive to light and accomodation 05/27/2014 None Procedures Procedure Codes Date TOBAC[employer] 3-[address]: [id number] CPT-4: G0436 11/30/2015 Vital Signs Date Vital 11/30/2015 Blood Pressure 1: 138/88 Code: 8480-6 BMI: 31.4 Code: 75573-1 Heart Rate 1: 74 bpm Height: 5'3" SpO2: 96% Weight: 177 lbs 06/20/2015 Blood Pressure 1: 138/86 Code: 8480-6 BMI: 32.8 Code: 46364-0 Heart Rate 1: 66 bpm Height: 5'3" SpO2: 98% Weight: 185 lbs 12/30/2014 Blood Pressure 1: 136/78 Code: 8480-6 BMI: 35.1 Code: 38233-4 Heart Rate 1: 80 bpm Height: 5'3" Weight: 198 lbs 08/16/2014 Blood Pressure 1: 138/88 Code: 8480-6 BMI: 35.8 Code: 91355-7 Heart Rate 1: 76 bpm Height: 5'3" Weight: 202 lbs 05/27/2014 Blood Pressure 1: 128/74 Code: 8480-6 BMI: 36.3 Code: 77722-0 Heart Rate 1: 76 bpm Height: 5'3" Weight: 205 lbs Functional Status No Functional Status data History of Present Illness Symptom Name Status Resu lt Effective Date Notes rash Quality erythematous 11/30/2015 None rash Color red 11/30/2015 None rash Color pink 11/30/2015 None rash Onset and Resolution ongoing 11/30/2015 None rash Onset of Symptom 6 months ago 11/30/2015 None rash Pertinent Findings itching 11/30/2015 None rash Pertinent Findings Denies pain 11/30/2015 None rash Severity mild 11/30/2015 None rash Prior Treatments pa rtially responsive to treatment 11/30/2015 benbingl gets rid of the hives but she doesnt like to take it due to drowsiness Pap smear abnormality Quality atypia 06/20/2015 None Pap smear abnormality Dates for Pap smear last abnormal pap (05/27/2014) 06/20/2015 ASC-US repeat at 6 and 12 months Pap smear abnormality Pertinent Findings Denies pelvic pain 06/20/2015 None Pap smear abnormality Quality atypia 12/30/2014 None Pap smear abnormality Dates for Pap smear last abnormal pap (05/27/2014) 12/30/2014 ASC-US repeat at 6 and 12 months Pap smear abnormality Onset and Resolution ongoing 12/30/2014 None Pap smear abnormality Pertinent Findings Denies pelvic pain 12/30/2014 None ~generic Onset of Symptom 5 days ago 08/16/2014, started with it ramana and burning, feeling better still a little itching just following up. ~generic Quality improvi ng 08/16/2014 None ~generic Frequency of Episodes 6 days 08/16/2014 None ~generic Length of Episodes 6 days 08/16/2014 None ~generic Onset and Resolution ongoing 08/16/2014 None ~generic Severity mild 08/16/2014 None ~generic Alleviating Factors medication 08/16/2014 None ~generic Pertinent Findings Denies fever 08/16/2014 None ~generic Location diffus neftaly 08/16/2014 None well woman exam (18-39 years) Pap Smear first time for pap smear today 05/27/2014 None well woman exam (18-39 years) Contro l regular use 05/27/2014 None well woman exam (18-39 years) Menstr ual History regular menses 05/27/2014 since starting control-started 2 years ago well woman exam (18-39 years) Menstr ual History normal flow 05/27/2014 N one well woman exam (18-39 years) Menstr ual History period length of 3-5 days 05/27/2014 None well woman exam (18-39 years) Obstet rical History 0 total pregnancies 05/27/2014 None well woman exam (18-39 years) Nutrit ion and Exercise overweight 05/27/2014 No ne well woman exam (18-39 years) Health Guidance self-breast exam 05/27/2014 None well woman exam (18-39 years) Reprod uctive System Development normal thelarche 05/27/2014 None well woman exam (18-39 years) Sexual Activity has multiple concurrent partners has had multiple partners well woman exam (18-39 years) Cardio vascular Risk Factors obesity 05/27/2014 None well woman exam (18-39 years) Lifestyle normal sleep patterns 05/27/2014 None Advance Directives No Advance Directive data Encounters Encounter Performer Loca tion Codes Date ([id number]) 50213 EST. P ATIENT, LEVEL III Diagnosis: Allergic urticaria[ICD10: L50.0] Diagnosis: Tobacco use[ICD10: Z72.0] [facility] CPT- 4: 83038 11/30/2015 ([id number]) Clarissaou s no charge Diagnosis: Encounter for gynecological examination (general) (routine) without abnormal findings[ICD10: Z01.419] Leny Perez MD, [facility] CPT-4: 16893 06/20/2015 ([id number]) 14108 EST. P ATIENT, LEVEL III Diagnosis: Abnormal Pap smear of cervix[ICD9: 795.00] Diagnosis: Pap smear of vagina with ASC-US[ICD9: 795.11] Leny Perez MD, [facility] CPT-4: 60470 12/30/2014 ([id number]) 76510 EST. P ATIENT, LEVEL III Diagnosis: Vaginal itching[ICD9: 698.1] Leny Perez MD, [facility] CPT- 4: 31982 08/16/2014 ([id number]) PREV VISIT N EW AGE 18-39 Diagnosis: Well woman exam with routine gynecological exam[ICD9: V72.31] Leny Perez MD, [facility] CPT-4: 93170 05/27/2014 Plan of Care Planned Activity Notes C odes Status Date Visit Plan: Allergic urticaria-chec k environmental allergy panel-RX for epipen prn-instructed on use,etc. Recommend daily anti histamine such as zyrtec. Start prednisone prn hives Tobacco abuse - chronic condition for this patient. Patient has been counseled about need to stop smoking due to the negative health affects. Pt has vocalized understanding and states that they will consider smoking cessation, but the pt is not yet ready to use medication to assist cessation. 11/30/2015 Patient Education: Patient Medication Summary Completed 11/30/2015 Patient Education: Smoking and Tobacco Addiction Completed 11/30/2015 Patient Education: Obesity Completed 11/30/2015 Visit Plan: Too early for pap-repea t in 06/20/2015 Patient Education: Patient Medication Summary Completed 06/20/2015 Visit Plan: Abnormal pap in April 2014-ASC-US, HPV negative-repeat pap today in the office. Instructed that patient we will call her with the results when available. Plan to repeat pap in 6 months unless resul ts indicate additional testing. Patient verbalized understanding of plan. 12/30/2014 Visit Plan: Abnormal pap in April 2014-ASC-US, HPV negative-repeat pap today in the office. Instructed that patient we will call her with the results when available. Plan to repeat pap in 6 months unless resul ts indicate additional testing. Patient verbalized understanding of plan. 12/30/2014 Appointment: Pap Only 12/30/2014 Patient Education: Patient Medication Summary Completed 12/30/2014 Care Plan: PAP Pending 12/30/2014 Visit Plan: Vaginal yeast infection -improved with monistat but not completely gone-RX for diflucan sent to patient's pharmacy and instructed on use. Instructed patient to come back in if symptoms do not resolve or if new symptoms develop. Also recommend patient use protection with intercourse. Patient verbalized understanding of plan. 08/16/2014 Appointment: Leny Landry WPtel: [address] [place], [place] [phone] Follow up 08/16/2014 Patient Education: Patient Medication Summary Completed 08/16/2014 Visit Plan: Well Adult Female - exa m completed. Pap and gc/chlamydia and breast exam completed. Pt will be called with results of her testing. She was advised to continue with yearly annual exams. Safe sex practice s discussed during office visit today. Call if any abnormal gynecologic issues during the next year, otherwise, RTC yearly or prn. 05/27/2014 Appointment: will pick packet pick ed up on 05.19.14 New Patient 05/27/2014 Patient Education: Patient Medication Summary Completed 05/27/2014 Instructions Comment CALL AFTER YOU GET Y OUR SCHEDULE TO SET UP FOLLOW UP-NEED TO REPEAT PAP I N 6 MONTHS-JUNE 2015 . Abnormal pap in April 2014-ASC-US, H PV negative-repeat pap today in the office. Instructed that patient we will call her with the results when available. Plan to repeat pap in 6 months unless results indicate additional testing. Patient verbalized understanding of plan. CALL AFTER YOU GET Y OUR SCHEDULE TO SET UP FOLLOW UP-NEED TO REPEAT PAP I N 6 MONTHS-JUNE 2015 . Abnormal pap in April 2014-ASC-US, H PV negative-repeat pap today in the office. Instructed that patient we will call her with the results when available. Plan to repeat pap in 6 months unless results indicate additional testing. Patient verbalized understanding of plan. . Well Adult Female - exam completed. Pap and gc/chlamydia and breast exam completed. Pt will be called with results of her testing. She was advised to continue with yearly annual exams. Safe sex practices discussed during office visit today. Call if any abnormal gynecologic issues during the next year, otherwise, RTC yearly or prn. ZYRTEC (CETIRIZINE) 10MG DAILY PEPCID 20MG TWICE DAILY . Allergic urticaria-check environmental allergy panel-RX for epipen prn- instructed on use,etc. Recommend daily anti histamine such as zyrtec. Start prednisone prn hives Tobacco abuse - chronic condition for this patient. Patient has been counseled about need to stop smoking due to the negative health affects. Pt has vocalized understanding and states that they will consider smoking cessation, but the pt is not yet ready to use medication to assist cessation. . Too early for pap- repeat in July . Vaginal yeast infe ction-improved with monistat but not completely gone-RX for diflucan sent to patient's pharmacy and instructed on use. Instructed patient to come back in if symptoms do not resolve or if new symptoms develop. Also recommend patient use protection with intercourse. Patient verbalized understanding of plan.
[2019-11-18] MEDS ORDERED: ACETAMINOPHEN 500 MG TAB (TYLENOL) PO PRN (21:15)
[2019-11-18] MEDS ORDERED: ZOLPIDEM 5 MG (AMBIEN) TAB PO ONE (21:15)
[2019-11-18] MEDS ORDERED: ZOLPIDEM 5 MG (AMBIEN) TAB ONE ×2 (23:55→23:58)
[2019-11-19] VITALS (63 sets, daily range): BP systolic 123–173; BP diastolic 65–94
[2019-11-19] MEDS ORDERED: fentaNYL 2 mcg/ml BUPIVA 0.125 100 ML ONE (02:50)
[2019-11-19] MEDS ORDERED: fentaNYL INJECTION 100 MCG/2 ML AMP ONE ×3 (03:43→17:58)
[2019-11-19] MEDS: EPIDURAL (fentaNYL 2 MCG/ML BUPIVA 0.125%)100 ML BAG EPI PRN ×2 (04:11→11:40)
[2019-11-19] MEDS ORDERED: LACTATED RINGERS 1,000 ML IV ONE ×2 (04:14)
[2019-11-19] MEDS ORDERED: ONDANSETRON 4 MG/2 ML (SDV) Z0FRAN IV PRN (04:15)
[2019-11-19] MEDS ORDERED: NALOXONE 0.4 MG/ML 1 ML (NARCAN) VIAL IV PRN (04:15)
[2019-11-19] MEDS ORDERED: LIDOCAINE PF 2% 5 ML (XYLOCAINE) VIAL ONE ×5 (04:17→17:10)
[2019-11-19] MEDS ORDERED: BUPIVACAINE 0.25% 30 ML (SENSORCAINE) VIAL ONE ×2 (04:17→11:59)
[2019-11-19] MEDS ORDERED: LIDOCAINE/EPI 2% 1:200,00 (XYLOCAINE) 20 ML VIAL ONE (11:30)
[2019-11-19] MEDS: LACTATED RINGERS 1,000 ML IV SCH (12:30)
[2019-11-19] MEDS: OXYTOCIN PRE-MIX DRIP 500 ML IV SCH ×2 (14:05→18:35)
[2019-11-19] MEDS ORDERED: FERRIC CARBOXYMALTOSE INJ 750 MG in NS (IVPB) 250 ML IV SCH (15:15)
[2019-11-19] MEDS ORDERED: TERBUTALINE INJ 1 MG/ML (BRETHINE) AMP ONE (15:58)
[2019-11-19] MEDS ORDERED: METOCLOPRAMIDE INJ 10 MG/2 ML (REGLAN) ONE (15:58)
[2019-11-19] MEDS ORDERED: CITRIC ACID/SOB CIT (BICITRA) 30 ML UDC ONE (15:59)
[2019-11-19] MEDS ORDERED: FAMOTIDINE 20MG/2ML IV (PEPCID) ONE (15:59)
[2019-11-19] MEDS ORDERED: ceFAZolin 2 GM IV Premixed 50 ML ONE (15:59)
[2019-11-19] MEDS ORDERED: AZITHROMYCIN 500 MG (ZITHROMAX) VIAL ONE (16:00)
[2019-11-19] MEDS ORDERED: WATER (STERILE) FOR INJECTION 20 ML ONE (16:00)
[2019-11-19] MEDS ORDERED: TERBUTALINE INJ 1 MG/ML (BRETHINE) AMP SC ONE (16:15)
[2019-11-19] MEDS ORDERED: METOCLOPRAMIDE INJ 10 MG/2 ML (REGLAN) IV ONE (16:15)
[2019-11-19] MEDS ORDERED: AZITHROMYCIN INJECTION 500 MG in NS (IVPB) 250 ML IV ONE (16:15)
[2019-11-19] MEDS ORDERED: CITRIC ACID/SOB CIT (BICITRA) 30 ML UDC PO ONE (16:15)
[2019-11-19] MEDS ORDERED: ceFAZolin 2 GM IV Premixed 50 ML IV NR (16:15)
[2019-11-19] MEDS ORDERED: BUPIVACAINE 0.5% 30 ML (SENSORCAINE) VIAL ONE (16:25)
--- NOTE | 2019-11-19 16:47 | Progress Note-Pre Operative ---
Pre-Operative Progress Note H&P Reviewed Monica was admitted yesterday in latent labor. She was 4 cm and jeff irregularly. Her was complicated by gestational diabetes. She was controlled with metformin. She did not want to have interventions if necessary, so she was admitted yesterday in latent labor (4 cm dilated and contractions were irregular) She had thought she had two gushes of fluids. Her story was very reflective of ROM, but when she was examined, it did not appear that she had had ROM. She contracted irregularly all day and made slow cervical change. She progressed to 5 cm dilated. We discussed augmenting over night, and opted to let her have dinner and then rest. At about 2 45 am, she was having more painful contractions and she was requesting something for pain. Epidural was placed shortly after that. However, cervix had not changed. At 0600 cervix was still 5 but completely effaced. She was requesting a meal, so the RN checked her at 8 and she was 7 cm with bulging membranes. Blood sugar was 89. She was still only jeff irregularly but since she was changing her cervix, she augmentation was not started. AROM was accomplished at 1130 at 8 cm/ 100 effaced. She then continued to have contractions and "felt pressure and need to push" approximately 2 pm. She pushed for 1 hour and 45 minutes in multiple positions. She did not not make much progress and had variable and early decelerations. After 45 minutes, pitocin was started to decrease the interval between contractions. After 1 1/2 hours, she was given the choice to wait, rest, continue pushing, or proceed with section. She opted to rest. She rested for about 10 minutes and then opted to proceed with section. There was molding and caput. The head was still at +1 station and was asynclytic. Likely OP presentation. Pitocin was stopped and terbutaline was given. She opted at this time to proceed with primary section. This was done for arrest of descent, suspected cephalopelvic disproportion, gestational diabetes. Risks include injury to bowel, bladder and ureter, infection, bleeding. Prophylactic antibiotics and SCDs will be used. Appropriate consents have been signed. Date Seen by Provider: Nov 19, 2019 Time Seen by Provider: 16:04 Date H&P Reviewed: Nov 19, 2019 Time H&P Reviewed: 16:00 Pre-Operative Diagnosis: rrest of descent, suspected cephalopelvic disproportion, gestational diabet ANN-MARIE MALIK DO Nov 19, 2019 16:47
[2019-11-19] MEDS ORDERED: MIDAZOLAM 2 MG/2 ML (VERSED) VIAL ONE (17:07)
[2019-11-19] MEDS ORDERED: KETOROLAC 30 MG/ML VIAL ONE (17:18)
[2019-11-19] MEDS ORDERED: proPOfol 200 MG/20 ML (DIPRIVAN) VIAL IV ONE ×2 (17:33→17:39)
[2019-11-19] MEDS ORDERED: NEOSTIGMINE 3 MG/3 ML VIAL ONE (17:33)
[2019-11-19] MEDS ORDERED: LACTATED RINGERS 1,000 ML IV PRN (17:37)
[2019-11-19] MEDS: KETOROLAC 30 MG/ML VIAL IV SCH ×2 (17:45→23:10)
[2019-11-19] MEDS ORDERED: OXYTOCIN PRE-MIX DRIP 500 ML IV SCH (18:00)
[2019-11-19] MEDS ORDERED: MEASLES,MUMPS,RUBELLA 1 EA INJ SC SCH (18:00)
[2019-11-19] MEDS ORDERED: morphine INJ 4 MG/ML 1 ML (VIAL/SYRINGE) IVP PRN (18:00)
[2019-11-19] MEDS ORDERED: BISACODYL 10 MG SUPP (DULCOLAX) PR PRN (18:00)
[2019-11-19] MEDS ORDERED: TETANUS,DIPTH,PERTUSS P/F (BOOSTRIX) 0.5 ML VIAL IM SCH (18:00)
--- NOTE | 2019-11-19 18:08 | Cesarean Section Operative ---
Procedure Procedure Note Pre-operative Diagnosis: Monica Ocasio is a 24 /Para 1 / 0,Gestational Age 38 3/7 weeks, arrest of descent, gestational diabetes Post-operative Diagnosis: same, persistent OP presentation, cephalopelvic disproportion, extension of incision Procedure: primary low transverse section Physician: ANN-MARIE MALIK Estimated blood loss: 600 mL Disposition: stable Findings: Viable female infant, Apgars 8/8, weight 8#1ouncs, intact placenta, 3vc, normal appearing uterus, tubes, and ovaries. [ Indications:Monica Ocasio is a 24 /Para 1 / 0,Gestational Age 38 3/7 weeks, arrest of descent, gestational diabetes; for primary section Procedure Details: The patient was seen in pre-op and the procedure was discussed with the patient in full, including the risks, benefits, and alternatives. All questions were answered. The patient was taken to the operating room and a time out was performed, verifying patient and procedure. After spinal anesthesia was placed by our anesthesia colleagues, the patient was placed in the dorsal supine with leftward tilt for uterine displacement.~ Her abdomen was then prepped and draped in the typical sterile fashion. A Pfannenstiel skin incision was made using a scalpel and carried down through the underlying fascia. The fascia was incised in the midline and tented up using Dory clamps. On both the inferior and superior fascia side the rectus muscle was dissected off bluntly and sharply using Mcmanus scissors. The peritoneum was identified and entered bluntly in the midline. This was then stretched laterally using manual strength. After entering the abdominal cavity and confirming lack of intraperitoneal adhesions, a large Tray retractor was placed and the lower uterine segment was visualized. A bladder flap was created with the use of Metzenbaum scissors.~ A scalpel was utilized to make a low transverse uterine incision. Amniotomy was performed with an Allis clamp with return of clear fluid. The infant's head was grasped and brought to the level of the incision. Fundal pressure was applied and infant was delivered without difficulty. Mouth and nares were suctioned with bulb suction. After the umbilical cord was clamped and cut, the was handed off to the pediatric staff. A sample of cord blood was then obtained. The placenta was delivered intact via uterine massage. The uterus was exteriorized and cleared of all clots and debris. The uterine incision was closed using 0 Vicryl in a running locked fashion. A second imbricated layer was placed using 0 Vicryl in a running fashion as well. The uterus was flexed forward and the posterior rectouterine space was inspected and cleared of all clots and debris. Again the hysterotomy site was examined and hemostasis was observed. The bilateral tubes and ovaries appeared normal. The uterus was placed back into the abdominal cavity and abdominal gutters were cleared of all clots and debris. A final check of the uterine incision showed it to be hemostatic. The peritoneum was closed using 3-0 Vicryl in a running fashion. The fascia was closed with 0 Vicryl in a running fashion. The subcutaneous space was hemosta tic, and irrigated. The subcutaneous space was closed with 3-0 Vicryl in several single interrupted stitches. The skin was then closed using 4-0 Monocryl in a running subcuticular fashion. The skin edges were reapproximated together and were hemostatic. A pressure dressing was applied. All sponge, lap and needle counts were correct at the end of the procedure per nursing. Vitals - Labs Vital Signs - I&O Vital Signs Date Time Temp Pulse Resp B/P (MAP) Pulse Ox O2 Delivery O2 Flow Rate FiO2 11/19/19 14:53 84 20 130/77 (94) Room Air 11/19/19 14:05 37.2 77 22 159/94 (115) Room Air 11/19/19 13:50 76 22 163/92 (115) 94 Room Air 11/19/19 12:50 75 18 141/86 (104) 96 Room Air 11/19/19 12:35 75 18 141/86 (104) 96 Room Air 11/19/19 12:20 75 18 141/91 (108) 97 Room Air 11/19/19 12:05 74 18 139/91 (107) 97 Room Air 11/19/19 11:50 78 18 144/88 (106) 98 Room Air 11/19/19 11:35 83 18 142/86 (104) 98 Room Air 11/19/19 11:20 84 18 143/90 (107) 97 Room Air 11/19/19 11:05 73 18 136/80 (98) 97 Room Air 11/19/19 10:50 36.5 76 18 138/82 (100) 98 Room Air 11/19/19 10:35 73 18 140/83 (102) 98 Room Air 11/19/19 10:20 76 18 139/87 (104) 95 Room Air 11/19/19 10:05 76 18 139/87 (104) 95 Room Air 11/19/19 09:50 80 18 140/76 (97) 95 Room Air 11/19/19 09:35 79 18 139/77 (97) 95 Room Air 11/19/19 09:20 81 18 134/76 (95) 96 Room Air 11/19/19 08:50 78 18 135/85 (102) 97 Room Air 11/19/19 08:30 71 18 137/80 (99) 97 Room Air 11/19/19 08:15 80 18 135/78 (97) 98 Room Air 11/19/19 08:00 85 18 130/70 (90) 97 Room Air 11/19/19 07:45 82 18 130/73 (92) 98 Room Air 11/19/19 07:30 74 18 123/67 (85) 97 Room Air 11/19/19 07:15 36.6 86 18 124/70 (88) 98 Room Air 11/19/19 07:00 71 18 96 Room Air 11/19/19 06:45 75 18 133/66 (88) 96 Room Air 11/19/19 06:15 67 18 129/67 (87) 96 Room Air 11/19/19 06:00 69 18 130/68 (88) 96 Room Air 11/19/19 05:45 66 18 129/67 (87) 96 Room Air 11/19/19 05:30 36.8 66 18 126/65 (85) 96 Room Air 11/19/19 05:15 67 18 130/69 (89) 96 Room Air 11/19/19 05:00 68 18 133/69 (90) 95 Room Air 11/19/19 04:45 68 18 133/67 (89) 96 Room Air 11/19/19 04:30 37.0 66 18 134/73 (93) 96 Room Air 11/19/19 04:25 71 18 138/77 (97) 97 Room Air 11/19/19 04:20 74 18 137/73 (94) 96 Room Air 11/19/19 04:15 74 18 138/71 (93) 97 Room Air 11/19/19 04:13 74 18 138/71 (93) 98 Room Air 11/19/19 04:10 72 18 142/85 (104) 98 Room Air 11/19/19 04:07 76 18 137/85 (102) 98 Room Air 11/19/19 04:04 75 18 128/82 (97) 98 Room Air 11/19/19 04:01 79 18 146/91 (109) 99 Room Air 11/19/19 03:30 37.0 71 18 173/92 (119) 99 Room Air Labs Laboratory Tests 11/19/19 07:58: Glucometer 129H Microbiology 11/18/19 Urine Culture - Final, Complete 3 or more isolates ANN-MARIE MALIK DO Nov 19, 2019 18:08
[2019-11-19] MEDS ORDERED: ONDANSETRON 4 MG/2 ML (SDV) Z0FRAN IVP PRN (18:30)
[2019-11-19] MEDS ORDERED: HYDROmorphone 2 MG/ML VIAL (DILAUDID) IV ONE (18:30)
--- NOTE | 2019-11-19 19:10 | NUR ---
Patient to pp room 307 from recovery room, escorted by Maribell PRODUCTION MATERIAL COORDINATOR. Report received at bedside. Patient oriented to room and call light. Call light remains within reach. POC reviewed.
--- NOTE | 2019-11-19 20:00 | NUR ---
FFU/2, light rubra, no clots, pericare performed per this RN.
[2019-11-19] MEDS ORDERED: CATHETER FLUSH 10 ML SYR IV SCH (22:00)
--- NOTE | 2019-11-19 22:00 | NUR ---
FFU/2, light rubra, pericare performed per this RN.
[2019-11-19] MEDS: ACETAMINOPHEN 500 MG TAB (TYLENOL) PO SCH (23:09)
[2019-11-20] VITALS: BP 126/72
[2019-11-20] MEDS: LACTATED RINGERS 1,000 ML IV SCH (00:15)
[2019-11-20 04:25] VITALS: BP 132/89
[2019-11-20] MEDS ORDERED: MILK OF MAGNESIA 400 MG/5 ML 30 ML UDC PO PRN (05:00)
[2019-11-20 05:18] LABS: BASOPHILS % (AUTO) 0 % (0-10); EOSINOPHILS % (AUTO) 0 % (0-10); HEMATOCRIT 29 % (35-52); HEMOGLOBIN 9.5 G/DL (11.5-16.0); LYMPHOCYTES # (AUTO) 1.3 X 10^3 (1.0-4.0); LYMPHOCYTES % (AUTO) 14 % (12-44); MEAN CORPUSCULAR HEMOGLOBIN 30 PG (25-34); MEAN CORPUSCULAR HGB CONC 33 G/DL (32-36); MEAN CORPUSCULAR VOLUME 91 FL (80-99); MEAN PLATELET VOLUME 11.4 FL (7.4-10.4); MONOCYTES # (AUTO) 0.6 X 10^3 (0.0-1.0); MONOCYTES % (AUTO) 7 % (0-12); NEUTROPHILS # (AUTO) 6.8 X 10^3 (1.8-7.8); NEUTROPHILS % (AUTO) 79 % (42-75); PLATELET COUNT 94 10^3/uL (130-400); RED CELL DISTRIBUTION WIDTH 15.5 % (10.0-14.5); WHITE BLOOD COUNT 8.7 10^3/uL (4.3-11.0)
--- NOTE | 2019-11-20 06:35 | NUR ---
Dressing removed at this time. Incision remains open to air, no drainage present. Patient ambulated to bathroom, positive void of 400mL achieved. patient back to sitting on side of bed, call light within reach.
[2019-11-20] MEDS: KETOROLAC 30 MG/ML VIAL IV SCH (06:43)
--- NOTE | 2019-11-20 07:00 | NUR ---
Respiratory to patient room to review IS.
[2019-11-20] MEDS: FERROUS SULF 325 MG (IRON) TAB PO SCH (08:18)
[2019-11-20] MEDS: DOCUSATE SODIUM 100 MG (COLACE) CAP PO SCH ×2 (08:18→20:14)
[2019-11-20] MEDS: ACETAMINOPHEN 500 MG TAB (TYLENOL) PO SCH ×2 (08:18→16:41)
[2019-11-20 09:00] VITALS: BP 129/78
--- NOTE | 2019-11-20 09:00 | NUR ---
A.M. ASSESSMENT COMPLETED. VSS. CARING FOR IN ROOM. GOOD INTERACTION NOTED. DR. FORREST HERE TO SEE PT.
--- NOTE | 2019-11-20 09:03 | NUR ---
OXYIR 5 MG P.O. FOR C/O ABDOMINAL PAIN.
--- NOTE | 2019-11-20 09:25 | Postpartum Progress Note ---
Note Note Day # 1 Subjective: Patient is without complaints. Ambulating, voiding. Tolerating a regular diet without nausea or vomiting. Normal lochia. Pain is well controlled with oral pain medications. Objective: Physical Exam: General - Alert and oriented, no apparent distress Abdomen - Soft, appropriately tender to palpation, non-distended, fundus firm at umbilicus Extremities - no edema, negative Toby's bilaterally Incision- c/d/i Assessment: POD 1 PLTCS Acute blood loss anemia Plan: Routine care. Encourage breast feeding. Encourage ambulation. Ferrous sulfate supplementation. Plan for discharge tomorrow Restarting lower dose of metformin 1000 mg PO q hs Vitals - Labs Vital Signs - I&O Vital Signs Date Time Temp Pulse Resp B/P (MAP) Pulse Ox O2 Delivery O2 Flow Rate FiO2 11/20/19 04:25 36.9 86 18 132/89 (103) 99 Room Air 11/20/19 00:00 36.9 89 18 126/72 (90) 96 Room Air 11/19/19 20:30 37.2 76 18 127/73 (91) 95 Room Air 11/19/19 20:08 37.0 74 18 138/81 (100) 94 Room Air 11/19/19 19:10 Room Air 11/19/19 19:00 36.5 14 139/88 (105) 95 Room Air 11/19/19 18:50 16 143/89 (107) 93 Room Air 11/19/19 18:40 18 143/89 (107) 93 Room Air 11/19/19 18:40 Room Air 11/19/19 18:30 20 142/85 (104) 95 Room Air 11/19/19 18:20 16 134/84 (101) 93 Room Air 11/19/19 18:11 36.7 10 130/86 (101) 94 Room Air 11/19/19 18:11 Room Air 11/19/19 16:35 92 20 144/74 (97) Room Air 11/19/19 16:30 95 20 156/82 (106) Room Air 11/19/19 16:25 94 20 157/78 (104) Room Air 11/19/19 16:20 93 20 154/75 (101) Room Air 11/19/19 16:05 78 20 132/85 (101) Room Air 4/24/20 15:50 86 20 129/74 (92) Room Air 11/19/19 15:15 36.6 101 20 125/80 (95) Room Air 11/19/19 14:55 84 20 130/77 (94) Room Air 11/19/19 14:53 84 20 130/77 (94) Room Air 11/19/19 14:20 77 22 145/76 (99) Room Air 11/19/19 14:05 37.2 77 22 159/94 (115) Room Air 11/19/19 13:50 76 22 163/92 (115) 94 Room Air 11/19/19 13:35 80 18 145/92 (109) 96 Room Air 11/19/19 13:20 78 18 137/80 (99) 97 Room Air 11/19/19 13:05 79 18 140/87 (104) 97 Room Air 11/19/19 12:50 75 18 141/86 (104) 96 Room Air 11/19/19 12:35 75 18 141/86 (104) 96 Room Air 11/19/19 12:20 75 18 141/91 (108) 97 Room Air 11/19/19 12:05 74 18 139/91 (107) 97 Room Air 11/19/19 11:50 78 18 144/88 (106) 98 Room Air 11/19/19 11:35 83 18 142/86 (104) 98 Room Air 11/19/19 11:20 84 18 143/90 (107) 97 Room Air 11/19/19 11:05 73 18 136/80 (98) 97 Room Air 11/19/19 10:50 36.5 76 18 138/82 (100) 98 Room Air 11/19/19 10:35 73 18 140/83 (102) 98 Room Air 11/19/19 10:20 76 18 139/87 (104) 95 Room Air 11/19/19 10:05 76 18 139/87 (104) 95 Room Air 11/19/19 09:50 80 18 140/76 (97) 95 Room Air 11/19/19 09:35 79 18 139/77 (97) 95 Room Air I & O 11/20/19 07:00 Intake Total 2800 ml Output Total 950 ml Balance 1850 ml Labs Laboratory Tests 11/20/19 04:50: White Blood Count 8.7, Red Blood Count 3.14L, Hemoglobin 9.5#L, Hematocrit 29L, Mean Corpuscular Volume 91, Mean Corpuscular Hemoglobin 30, Mean Corpuscular Hemoglobin Concent 33, Red Cell Distribution Width 15.5H, Platelet Count 94L, Mean Platelet Volume 11.4H, Neutrophils (%) (Auto) 79H, Lymphocytes (%) (Auto) 14, Monocytes (%) (Auto) 7, Eosinophils (%) (Auto) 0, Basophils (%) (Auto) 0, Neutrophils # (Auto) 6.8, Lymphocytes # (Auto) 1.3, Monocytes # (Auto) 0.6, Eosinophils # (Auto) 0.0, Basophils # (Auto) 0.0 11/20/19 06:28: Glucometer 115H Microbiology 11/18/19 Urine Culture - Final, Complete 3 or more isolates GAUDENCIO FORREST DO Nov 20, 2019 09:25
--- NOTE | 2019-11-20 10:00 | NUR ---
SHOWERED WITHOUT PROBLEMS. MOVES WELL.
--- NOTE | 2019-11-20 10:30 | NUR ---
AMBULATING IN THE HALLWAY. MOVES WELL.
[2019-11-20] MEDS ORDERED: IBUPROFEN 600 MG (MOTRIN) TAB PO ONE (12:14)
[2019-11-20] MEDS: IBUPROFEN 600 MG (MOTRIN) TAB PO SCH ×3 (12:23→23:30)
[2019-11-20 12:45] VITALS: BP 127/78
--- NOTE | 2019-11-20 12:45 | NUR ---
VSS. CONTINUING TO DO 2 HOUR PP BLOOD SUGARS. ASSISTING WITH . DOING BETTER.
[2019-11-20] MEDS ORDERED: metFORMIN 500 MG (GLUCOPHAGE) TAB PO SCH ×2 (14:00→21:00)
--- NOTE | 2019-11-20 14:17 | NUR ---
MILK OF MAG GIVEN PER PT REQUEST.
--- NOTE | 2019-11-20 16:00 | NUR ---
PT HAS BEEN AMBULATING IN THE HALLWAY WITH IN CRIB AND SPOUSE.
[2019-11-20 17:30] VITALS: BP 125/66
--- NOTE | 2019-11-20 18:00 | NUR ---
EATING DINNER. CONTINUES TO DO WELL. + BM.
--- NOTE | 2019-11-20 18:45 | NUR ---
PT HAS AMBULATED X3 THIS SHIFT. DOING INCENTIVE SPIROMETRY. IS GOING BETTER.
[2019-11-20 23:30] VITALS: BP 151/85
[2019-11-21 05:36] VITALS: BP 137/89
[2019-11-21] MEDS: IBUPROFEN 600 MG (MOTRIN) TAB PO SCH (05:38)
--- NOTE | 2019-11-21 06:00 | NUR ---
Pt. in hallway ambulating at this time. Shows no signs of distress. States she is going to take a shower when she is done.
--- NOTE | 2019-11-21 06:39 | NUR ---
Nurse at pt bedside for accucheck. Pt. has just taken shower and dressed herself. Pt. is doing well with no complaints.
--- NOTE | 2019-11-21 08:51 | Postpartum Progress Note ---
Post Op Post-operative Day #2 s/p PLTCS Subjective: Patient is without complaints. Ambulating, voiding after aragon removed. Tolerating a regular diet without nausea or vomiting. Normal lochia. Pain is well controlled with oral pain medications. Passing flatus. breast feeding. [] Objective: 11/20/19 11/21/19 23:30 05:36 Temp 36.5 36.6 Pulse 92 87 Resp 20 18 B/P (MAP) 151/85 (107) 137/89 (105) Pulse Ox 96 96 O2 Delivery Room Air Room Air 11/21/19 00:00 Intake Total 1530 ml Output Total 775 ml Balance 755 ml Laboratory Tests Test 11/20/19 10:29 11/20/19 15:12 11/20/19 20:08 11/20/19 23:32 Range/Units Glucometer 102 141 H 117 H 89 70-110 MG/DL Test 11/21/19 06:37 Range/Units Glucometer 98 70-110 MG/DL Physical Exam: General - Alert and oriented, no apparent distress Abdomen - Soft, appropriately tender to palpation, non-distended, fundus firm at umbilicus Incision - clean, dry and intact; no erythema or induration, no drainage Extremities - no edema, negative Toby's bilaterally Assessment: 1. post-operative day # 2, status post PLTCS. Recovering well, hemodynamically stable 2. Acute blood loss anemia - stable 3. GDM A2 Plan: Routine post-operative care. Encourage breast feeding. Encourage ambulation. VTE prophylaxis: SCDs. Ferrous sulfate supplementation. Plan for discharge today or tomorrow depending on status of baby Vitals - Labs Vital Signs - I&O Vital Signs Date Time Temp Pulse Resp B/P (MAP) Pulse Ox O2 Delivery O2 Flow Rate FiO2 11/21/19 05:36 36.6 87 18 137/89 (105) 96 Room Air 11/20/19 23:30 36.5 92 20 151/85 (107) 96 Room Air 11/20/19 17:30 36.6 87 18 125/66 (85) 97 Room Air 11/20/19 12:45 36.6 87 18 127/78 (94) 97 Room Air 11/20/19 09:00 36.5 92 18 129/78 (95) 97 Room Air I & O 11/21/19 07:00 Intake Total 3530 ml Output Total 1675 ml Balance 1855 ml Labs Laboratory Tests 11/20/19 10:29: Glucometer 102 11/20/19 15:12: Glucometer 141H 11/20/19 20:08: Glucometer 117H 11/20/19 23:32: Glucometer 89 11/21/19 06:37: Glucometer 98 Microbiology 11/18/19 Urine Culture - Final, Complete 3 or more isolates ANN-MARIE MALIK DO Nov 21, 2019 08:51
[2019-11-21] MEDS ORDERED: ACET-93 PO (08:56)
[2019-11-21] MEDS ORDERED: OXYC5TAB96 PO (08:56)
[2019-11-21] MEDS ORDERED: METF-397 PO (08:56)
[2019-11-21] MEDS ORDERED: IBUP-844 PO (08:56)
[2019-11-21] MEDS: FERROUS SULF 325 MG (IRON) TAB PO SCH (09:03)
[2019-11-21] MEDS: DOCUSATE SODIUM 100 MG (COLACE) CAP PO SCH (09:03)
[2019-11-21] MEDS: ACETAMINOPHEN 500 MG TAB (TYLENOL) PO SCH (09:04)
[2019-11-21 09:05] VITALS: BP 122/73
--- NOTE | 2019-11-21 09:07 | Short Stay Summary ---
Discharge Summary Hospital Course Was the Problem List Reviewed?: Yes Final Diagnosis: Labor; arrest of descent; GDM; 38 weeks' anemia Hospital Course Date of Admission: Nov 18, 2019 at 12:10 Admission Diagnosis : Family Physician/Provider: Anna Perez MD Date of Discharge: 11/21/19 Discharge Diagnosis: [ ] Hospital Course: [ ] Labs and Pending Lab Test: Laboratory Tests 11/20/19 10:29: Glucometer 102 11/20/19 15:12: Glucometer 141H 11/20/19 20:08: Glucometer 117H 11/20/19 23:32: Glucometer 89 11/21/19 06:37: Glucometer 98 Microbiology 11/18/19 Urine Culture - Final, Complete 3 or more isolates Home Meds Active Reported Vitamin C (Ascorbic Acid) 500 Mg Tablet 500 Mg PO DAILY Metformin HCl 1,000 Mg Tablet 1,500 Mg PO HS Iron (Ferrous Sulfate) 325 Mg Tablet 325 Mg PO DAILY Vitamin Tablet ( Vit No.124/Iron/FA) 1 Each Tablet 1 Each PO DAILY Omeprazole 20 Mg Capsule.dr 20 Mg PO DAILY Assessment/Pt Instructions Follow up with Tracie in 7-10 days or via phone 6 week post exam Discharge Instructions Discharge Diet: ADA Diet (conitinue to follow the ADA diet. Bring in blood sugars to your appointments. Will check A1C and labs at post exam. Will do 2 hour glucose at post exam. ) Activity as Tolerated: Yes Discharge Physical Examination General Appearance: Alert, Oriented X3 HEENT: Atraumatic Respiratory: Clear to Auscultation, Normal Air Movement Cardiovascular: Regular Rate, Normal S1, Normal S2 Abdominal: Normal Bowel Sounds Allergies: Coded Allergies: No Known Drug Allergies (Unverified , 11/18/19) Discharge Summary Date of Admission Nov 18, 2019 at 12:10 Date of Discharge 11/21/2019 Discharge Date: Nov 21, 2019 Admission Diagnosis Latent labor gestational diabetes A2 Consults/Procedures Procedures Primary low transverse section Discharge Diagnosis Arrest of dilation Gestational diabetes, A2 Latent labor Acute blood loss anemia Primary low transverse cesareans section Clinical Quality Measures DVT/VTE Risk/Contraindication: Risk Factor Score Per Nursin RFS Level Per Nursing on Admit: 3=High ANN-MARIE MALIK DO Nov 21, 2019 09:06
[2019-11-21] MEDS ORDERED: DCS100C PO (09:17)
--- NOTE | 2019-11-21 12:10 | NUR ---
pt discharged to private vehicle via w/c with ANA Cormier, and s/o @ side. secured in rear facing car seat. pt stable with no sx's of distress noted.
== END 2019-11-21 12:10 | disposition home or self-care (01) | DRG 787 ==
LOC: WSo 08:51 → LDRP 08:55 → WSo 12:10 → LDRP 12:10
PROVIDERS: ADMIT Obstetrics & Gynecology; ATTEND Obstetrics & Gynecology
PROC: 10D00Z1 Extraction of Products of Conception, Low, Open Approach (ICD-10-PCS; principal; 2019-11-19 16:51)
DX: O62.0 Primary inadequate contractions (principal); O24.415 Gestational diabetes mellitus in pregnancy, controlled by oral hypoglycemic drugs; O32.4XX0 Maternal care for high head at term, not applicable or unspecified; O33.9 Maternal care for disproportion, unspecified; O64.0XX0 Obstructed labor due to incomplete rotation of fetal head, not applicable or unspecified; O90.81 Anemia of the puerperium; D62 Acute posthemorrhagic anemia; Z37.0 Single live birth; Z3A.38 38 weeks gestation of pregnancy
CPT/HCPCS: 36415; 81000; 82962; 85025; 86850; 86900; 86901; 87088; 94664; 99212